=== PATIENT | female | born 1970 | race Caucasian/White ===

== ENCOUNTER 2017-10-15 13:24 | Emergency (ER) | payer SELFPAY ==
[2017-10-15 13:30] VITALS: RESP 18
--- NOTE | 2017-10-15 14:02 | EDPHY ---
H & P Stated Complaint: Flying tomorrow;wants blood work for anemia to see if she needs transfusion Time Seen by Provider: 10/15/17 13:39 HPI/ROS: Chief Complaint: Lightheaded, history of anemia HPI: 47-year-old woman with a history of dysfunctional uterine bleeding presenting complaining of lightheadedness and heavy vaginal bleeding the last week. Patient states she is soaking at least 17 tampons and pads a day. She has been worked up extensively for this in the past and has had surgery for uterine fibroids. Her OBGYN has started her on oral contraceptives last month it in an attempt to improve this. She has required transfusions in the past. She has also been taking iron supplements, and B12. She has been having increasing shortness of breath when she walks. She spoke to her OBGYN on the phone who advised her to come to the emergency department to have her blood counts checked to see if she needs a transfusion. She is scheduled to fly out for a family emergency tomorrow. Denies any syncope. No chest pain. No nausea or vomiting. No abdominal pain. ROS: 10 point Review of Systems is negative except as noted in the HPI. PMH: Anemia, syncope Social History: No smoking, no alcohol, no recreational drug use Family History: non-contributory Physical Exam: Gen: Awake, Alert, No Distress HEENT: Nose: no rhinorrhea Eyes: PERRLA, EOMI, pale conjunctiva Mouth: Moist mucosa Neck: Supple, no JVD Chest: nontender, lungs clear to auscultation Heart: S1, S2 normal, no murmur Abd: Soft, non-tender, no guarding Back: no CVA tenderness, no midline tenderness Ext: no edema, non-tender Skin: no rash Neuro: CN II-XII intact, Sensation grossly intact, Strength 5/5 in bilateral upper and lower extremities - Personal History LMP (Females 10-55): Now Current Tetanus Diphtheria and Acellular Pertussis (TDAP): Yes - Medical/Surgical History Hx Cardiac Disease: Yes Other PMH: menorrhagia. 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 - Social History Smoking Status: Never smoked Constitutional: Initial Vital Signs Heart Rate 88 10/15/17 13:25 Respiratory Rate 18 10/15/17 13:25 Blood Pressure 128/67 H 10/15/17 13:25 O2 Sat (%) 100 10/15/17 13:25 O2 Delivery Mode Room Air Allergies/Adverse Reactions: No Known Allergies Allergy (Unverified 10/15/17 13:31) Home Medications: Medication Instructions Recorded Iron,Carbonyl/Ascorbic Acid 1 each PO 10/15/17 [Vitron-C Tablet] Noreth A-Et Estra/Fe Fumarate 1 each PO 10/15/17 [Loestrin 24 Fe Tablet] Medical Decision Making ED Course/Re-evaluation: Patient presenting with dysfunctional uterine bleeding. Her bleeding is actually light and up in the last 24 hours. H&H are 7.6 and 24.8. I have discussed with SAULO Engle. She agrees that since the patient's bleeding is improving and she is not having worsening symptoms that she can be followed up as an outpatient. She should call the office. She will certainly return for worsening bleeding or any other symptoms. - Data Points Laboratory Results: Laboratory Results 10/15/17 14:00 10/15/17 14:00 10/15/17 10/15/17 10/15/17 14:00 14:00 14:00 WBC 5.86 10^3/uL 10^3/uL (3.80-9.50) RBC 2.89 10^6/uL L 10^6/uL (4.18-5.33) Hgb 7.6 g/dL L g/dL (12.6-16.3) Hct 24.8 % L % (38.0-47.0) MCV 85.8 fL fL (81.5-99.8) MCH 26.3 pg L pg (27.9-34.1) MCHC 30.6 g/dL L g/dL (32.4-36.7) RDW 17.3 % H % (11.5-15.2) Plt Count 340 10^3/uL 10^3/uL (150-400) MPV 10.8 fL fL (8.7-11.7) Neut % (Auto) 71.9 % % (39.3-74.2) Lymph % (Auto) 18.3 % % (15.0-45.0) [place] % (Auto) 7.3 % % (4.5-13.0) Eos % (Auto) 1.7 % % (0.6-7.6) Baso % (Auto) 0.3 % % (0.3-1.7) Nucleat RBC Rel Count 0.0 % % (0.0-0.2) Absolute Neuts (auto) 4.21 10^3/uL 10^3/uL (1.70-6.50) Absolute Lymphs (auto) 1.07 10^3/uL 10^3/uL (1.00-3.00) Absolute Monos (auto) 0.43 10^3/uL 10^3/uL (0.30-0.80) Absolute Eos (auto) 0.10 10^3/uL 10^3/uL (0.03-0.40) Absolute Basos (auto) 0.02 10^3/uL 10^3/uL (0.02-0.10) Absolute Nucleated RBC 0.00 10^3/uL 10^3/uL (0-0.01) Immature Gran % 0.5 % % (0.0-1.1) Immature Gran # 0.03 10^3/uL 10^3/uL (0.00-0.10) Sodium 141 mEq/L mEq/L (134-144) Potassium 4.0 mEq/L mEq/L (3.5-5.2) Chloride 110 mEq/L mEq/L (97-110) Carbon Dioxide 23 mEq/l mEq/l (22-31) Anion Gap 8 mEq/L mEq/L (8-16) BUN 14 mg/dL mg/dL (7-23) Creatinine 0.9 mg/dL mg/dL (0.6-1.0) Estimated GFR > 60 Glucose 108 mg/dL H mg/dL (70-100) Calcium 8.6 mg/dL mg/dL (8.5-10.4) Patient ABO/Rh O POSITIVE Antibody Screen NEGATIVE Departure - Departure Disposition: Home, Routine, Self-Care Clinical Impression: Dysfunctional uterine bleeding, Anemia Condition: Good Instructions: Dysfunctional Uterine Bleeding (ED), Anemia (ED) Additional Instructions: Follow up with OBGYN in 3-4 days for further evaluation. Return to the emergency department for worsening bleeding, fainting, chest pain , or any other concerns. Referrals: Nancy Kauffman DO [Doctor of Osteopathy] - As per Instructions
[2017-10-15 14:15] LABS: % IMMATURE GRANULYOCYTES 0.5 % (0.0-1.1); ABSOLUTE IMMATURE GRANULOCYTES 0.03 10^3/uL (0.00-0.10); ADD DIFF? NO; ADD MORPH? NO; ADD SCAN? NO; ATYPICAL LYMPHOCYTE FLAG 20 (0-99); FRAGMENT RBC FLAG 20 (0-99); HEMATOCRIT 24.8 % (38.0-47.0); HEMOGLOBIN 7.6 g/dL (12.6-16.3); LEFT SHIFT FLG 0 (0-99); LIPEMIA HEMOLYSIS FLAG 80 (0-99); MEAN CELL HEMOGLOBIN 26.3 pg (27.9-34.1); MEAN CELL HEMOGLOBIN CONCENTR. 30.6 g/dL (32.4-36.7); MEAN CELL VOLUME 85.8 fL (81.5-99.8); MEAN PLATELET VOLUME 10.8 fL (8.7-11.7); PLATELET CLUMPS FLAG 10 (0-99); PLATELET COUNT 340 10^3/uL (150-400); RED BLOOD CELL COUNT 2.89 10^6/uL (4.18-5.33); RED CELL DISTRIBUTION WIDTH 17.3 % (11.5-15.2)
[2017-10-15 14:33] LABS: ANION GAP 8 mEq/L (8-16); CALCIUM 8.6 mg/dL (8.5-10.4); CARBON DIOXIDE 23 mEq/l (22-31); CHLORIDE 110 mEq/L (97-110); CREATININE 0.9 mg/dL (0.6-1.0); GLOMERULAR FILTRATION RATE > 60; GLUCOSE 108 mg/dL (70-100); SODIUM 141 mEq/L (134-144)
[2017-10-15 15:11] VITALS: BP 111/69; PULSE 82; TEMP 98.4; O2SAT 97
== END 2017-10-15 15:15 | disposition home or self-care (01) ==
DX: N93.8 Other specified abnormal uterine and vaginal bleeding (principal); D64.9 Anemia, unspecified